=== PATIENT | female | born 1990 | race African-American/Black ===

== ENCOUNTER 2022-03-11 19:11 | Emergency (ER) | payer SELFPAY ==
[~2022-03-11] VITALS: Ht 188 cm; Wt 95.0 kg
[2022-03-11 19:21] VITALS: BP 114/76
[2022-03-11] MEDS ORDERED: DEXAMETHASONE 4MG TABLET PO ONE (20:15)
[2022-03-11] MEDS ORDERED: DEXAMETHASONE 6MG TABLET PO NR (20:30)
== END 2022-03-11 20:50 | disposition home or self-care (01) ==
LOC: ER 19:11
DX: J00 Acute nasopharyngitis [common cold] (principal)
CPT/HCPCS: 99283; J8540